=== PATIENT | female | born 1965 | race Caucasian/White ===

== ENCOUNTER → 2017-07-22 | Outpatient (CLI) | payer OTHER ==
--- NOTE | 2017-07-22 14:59 | CT ---
EXAMINATION TYPE: CT sinus wo con DATE OF EXAM: 07/22/2017 COMPARISON: NONE HISTORY: Headaches x [address] DLP: 599 mGycm CONTRAST: None The paranasal sinuses are examined in the axial plane at 2 mm thick sections. Reconstructed images i n the coronal plane were obtained. There is been prior uncinectomies. The maxillary sinuses are clear. Postsurgical ethmoid air cell region appears clear The sphenoid si nuses are clear. The frontal sinuses are clear. The septum is evaluated. There is septal deviation. The ostiomeatal units are patent. IMPRESSIONS: 1. Postsurgical paranasal sinuses. No significant mucosal thickening or air-fluid levels are evident .
== END | disposition home or self-care (01) ==
LOC: RADCTMAIN 13:07
PROVIDERS: ATTEND Otolaryngology
DX: J32.9 Chronic sinusitis, unspecified (principal); Z98.890 Other specified postprocedural states
CPT/HCPCS: 70486